=== PATIENT | male | born 1965 | race Caucasian/White ===

== ENCOUNTER 2017-05-04 10:18 | Day surgery (SDC) | payer BC ==
[2017-05-02 18:09] VITALS: BMI 25.4
[~2017-05-04 10:18] MED LIST: LACTATED RINGERS 1,000 ML IV SCH
[2017-05-04 11:06] VITALS: TEMP 97.7
[2017-05-04] MEDS ORDERED: LIDOCAINE 1% 20 ML VIAL (10MG/ML) FOR IV START INTRADERMA ONE (11:06)
[2017-05-04] MEDS ORDERED: LIDOCAINE 1% INJ 10MG/ML (20 ML MDV) ONE (12:18)
[2017-05-04] MEDS ORDERED: PROPOFOL 10 MG/ML 20 ML VIAL IV ONE (12:18)
--- NOTE | 2017-05-04 12:57 | P.PCN ---
Date of Procedure: 05/04/17 Procedure(s) Performed: Brief history: Patient is a pleasant scheduled for an elective upper endoscopy as well as colonoscopy as a part of evaluation of long-standing history of intermittent GERD and screening for colorectal neoplasia. He has family history of colon cancer diagnosed in his mother at age 77. Procedure performed: Esophagogastroduodenoscopy with biopsy Colonoscopy with biopsy Preoperative diagnosis: GERD Screening for colon cancer/family history of colon cancer Anesthesia: MAC Procedure: After informed consent was obtained from the patient was brought into the endoscopy unit and IV sedation was administered by anesthesia under continuous monitoring. Initially upper endoscopy was done. The Olympus GF 160 video endoscope was inserted inserted into the mouth and esophagus intubated without any difficulty and was gradually advanced into the stomach and duodenum and carefully examined. The bulb and second part of the duodenum appeared normal. The scope was then withdrawn into the stomach adequately insufflated with air and upon careful examination the antrum had scattered erosions and biopsies were done from this area. The body, cardia and fundus appeared normal. The scope was then withdrawn into the esophagus. small hiatal hernia noted. The GE junction was located at 40 cm to the incisors. there was mild early narrowing of the GE junction. There were linear erosions in the distal esophagus consistent with LA grade B reflux esophagitis. Rest of the esophagus appeared normal. Patient tolerated the procedure well. At this time the patient continued to remain sedation. Initial digital rectal examination was normal. Olympus CF 160 video colonoscope was then inserted into the rectum and gradually advanced to the cecum without any difficulty. Careful examination was performed as the scope was gradually being withdrawn. The prep was excellent. The cecum, ascending colon, appeared normal. In the ascending colon there was a 5 mm polyp that was removed by biopsy. The transverse colon, descending colon, sigmoid colon and rectum appeared normal. Scattered sigmoid diverticulosis seen. Retroflexion was performed in the rectum and no lesions were noted. Patient tolerated the procedure well. Impression: 1. Upper endoscopy revealed mild antral gastritis, LA grade B reflux esophagitis and small hiatal hernia. 2. Collonoscopy revealed 5 mm ascending colon polyp status post removal by biopsy and scattered sigmoid diverticulosis Recommendations: Findings of this examination were discussed with the patient as well as his family. She was advised to follow with the biopsy results. He can have a repeat screening colonoscopy in 5 years. In regards to acid reflux symptoms he was advised to start Zantac 150 milligrams twice daily and follow antireflux measures.
[2017-05-04 13:23] VITALS: BP 129/82; PULSE 70; RESP 16
== END 2017-05-04 13:53 | disposition home or self-care (01) ==
LOC: ORWHC2ENDO 10:18
PROVIDERS: ATTEND Internal Medicine Gastroenterology
DX: Z12.11 Encounter for screening for malignant neoplasm of colon (principal); D12.4 Benign neoplasm of descending colon; K21.9 Gastro-esophageal reflux disease without esophagitis; K44.9 Diaphragmatic hernia without obstruction or gangrene; K29.50 Unspecified chronic gastritis without bleeding; Z79.899 Other long term (current) drug therapy; K57.30 Diverticulosis of large intestine without perforation or abscess without bleeding; I10 Essential (primary) hypertension; F17.200 Nicotine dependence, unspecified, uncomplicated
CPT/HCPCS: 88305; 88342; 45380; 43239; J2001; J2704

== ENCOUNTER → 2025-01-06 | Outpatient (CLI) | payer OTHER ==
--- NOTE | 2025-01-06 21:13 | US ---
EXAMINATION TYPE: US carotid duplex BILAT DATE OF EXAM: 01/06/2025 COMPARISON: NONE CLINICAL INDICATION: Male, 59 years old with history of R42 DIZZINESS AND GIDDINESS; Prior smoker, hy perlipidemia, dizziness per order- pt states he does not have dizziness Additional History: .... TECHNIQUE: Grayscale, color Doppler and spectral Doppler evaluation of the bilateral carotid systems and vertebral arteries. Indirect Doppler criteria was utilized. FINDINGS: EXAM MEASUREMENTS: RIGHT: Peak Systolic Velocity (PSV) cm/sec ----- Right CCA: 96.2 ----- Right ICA: 97.4 ----- Right ECA: 102 ICA/CCA ratio: 1.01 RIGHT: End Diastole cm/sec ----- Right CCA: 29.7 ----- Right ICA: 46.3 ----- Right ECA: 24.9 LEFT: Peak Systolic Velocity (PSV) cm/sec ----- Left CCA: 109 ----- Left ICA: 108 ----- Left ECA: 83.4 ICA/CCA ratio: 0.99 LEFT: End Diastole cm/sec ----- Left CCA: 33.7 ----- Left ICA: 49.8 ----- Left ECA: 17.3 VERTEBRALS (direction of flow): Right Vertebral: Antegrade Left Vertebral: Antegrade Rhythm: Normal NET LEAD ARCHITECT NOTES: No elevated velocities. Color Doppler imaging shows patency with blood flow throughout the carotid artery. IMPRESSION: 1. No suspicious changes to suggest stenosis based on velocity Criteria for Assigning % of Stenosis / Diameter reduction (Estimation based on the indirect measurements of the internal carotid artery velocities (ICA PSV). 1. Normal (no stenosis)=ICA PSV < 180 cm/s: ratio < 2.0: ICA EDV<40 cm/s. 2. Less than 50% stenosis=ICA PSV < 180 cm/s: ratio < 2.0: ICA EDV<40 cm/s. 3. 50 to 69% stenosis=ICA PSV of 180 to 230 cm/s: ration 2.0 ? 4.0: ICA EDV 40-100 cm/s. PSV 125-180 cm/sec and ICA/CCA PSV Ratio ? 2.0 is also consistent with 50-69% stenosis 4. Greater than 70% stenosis to near occlusion= ICA PSV > 230 cm/s: ratio > 4.0: ICA EDV > 100 cm/s. 5. Near occlusion= ICA PSV velocities may be low or undetectable: variable ratio and ICA EDV. 6. Total occlusion=unable to detect flow. [facility], , 01/06/2025 9:10 PM
== END | disposition home or self-care (01) ==
LOC: RADUSWWP 14:53
PROVIDERS: ATTEND Internal Medicine Geriatric Medicine
DX: R42 Dizziness and giddiness (principal)
CPT/HCPCS: 93880